=== PATIENT | female | born 1990 | race Two or more races ===

== ENCOUNTER 2016-12-24 19:08 | Emergency (ER) | payer OTHER ==
[2016-12-24] MEDS ORDERED: DOCUSATE SODIUM 10 MG/ML SOLN.DROP ONE (23:50)
== END 2016-12-25 00:35 | disposition home or self-care (01) ==
LOC: ED 19:08
DX: H61.21 Impacted cerumen, right ear (principal)
CPT/HCPCS: 99283; 99282; A9270